=== PATIENT | female | born 1985 | race Caucasian/White ===

== ENCOUNTER → 2016-05-06 | Outpatient (CLI) | payer BC ==
--- NOTE | 2016-05-06 11:15 | US ---
May 06, [address] Alcon Nash, Thank you for requesting consultation and a ultrasound to evaluate routine anatomy fo r your patient, Mrs. Tsang. As you know, Shaniqua is a 30 year old G 2, P 1001 with a marin pr egnancy dating 20 w 6 d; ANETTE of 09/17/16 by LMP and first trimester ultrasound. Aneuploidy screening was not performed. ULTRASOUND Number of fetuses: 1 Placental location: Anterior; no evidence of previa Placental cord insertion: Intraplacental presentation: Variable Cervix: 4.7 cm viewed transabdominally Maximum Vertical Pocket: 4.3 cm The adnexa were evaluated. No pathology was seen. Right ovary is visualized and seen as normal. It measures 3.4 x 2.1 x 3.5 cm. Left ovary is visualized and seen as normal. It measures 3.1 x 2.0 x 1.5 cm. MEASUREMENTS: Biparietal diameter: 53 mm 22 weeks, 2 days Head circumference: 193 mm 21 weeks, 5 days Abdominal circumference: 173 mm 22 weeks, 2 days Femur length: 36 mm 21 weeks, 3 days Humerus length: 35 mm 22 weeks, 1 days Transcerebellar diameter: 22 mm 20 weeks, 6 days Average ultrasound age: 22 weeks, 0 days Estimated weight: 457 gm weight percentile: 92% ANATOMY Supratentorial brain: Normal including views of the falx, cavum septum pellucidum and choroids Lateral Ventricle: Normal, measuring 5.5 mm Posterior fossa: Normal including the cerebellum and cisterna magna Spine: Normal Nuchal fold: 4.9 mm normal Face: Normal views of the lip and nose area Profile: Normal Palate: Normal appearance of the alveolar ridge Heart: Four Chamber View: Normal LVOT: Normal RVOT: Normal 3VV: Seen Trachel View Seen Aortic Arch: Seen Ductal Arch: Seen SVC/IVC: Seen Heart Rate 143 bpm Diaphragm: Normal appearance without overt abnormality detected Stomach: Normal Umbilical cord insertion: Normal Right kidney: Normal Left kidney: Normal Bladder: Normal Number of cord vessels: Three Upper extremities: Normal Lower extremities: Normal Gender: Male IMPRESSION: 1. Intrauterine at 20 w 6 d, ultrasound is consistent with her established ANETTE of 09/17/16 . 2. Normal anatomical survey. 3. Cervical length is normal at 4.7 cm without evidence of insufficiency. RECOMMENDATIONS: I was pleased to review today's ultrasound with your patient and her . The baby is large for gestational age which may be just a growth spurt or macrosomic trend. Should fundal heights in the t hird trimester be concerning for size greater than dates, we are happy to reevaluate the growth. The amniotic fluid volume is normal. Our detailed review of the anatomy did not reveal any overt abnormalities/ Future ultrasound and consultation is left to your clinical discretion. Thank you for allowing us the opportunity to evaluate your patient. Should you have any further ques tions or concerns please do not hesitate to contact me. Low risk; no E&M. Joyce Fine MD [facility] Diagnosis Department of Obstetrics & Gynecology [facility]
--- NOTE | 2016-05-06 11:53 | US ---
OB Sonogram History: 20 weeks 5 days, check growth and anatomy, second trimester screen Comparison: March 11, 2016 Findings: Cervix is closed measuring 4.7 cm transabdominally. The placenta is anterior without previa . The umbilical cord inserts normally into the placenta. Maximum amniotic fluid pocket = 4.3 cm. The maternal ovaries are normal. The visualized intracranial contents, face and spine look normal. The heart i s 4 chambered and has a rate of 143 bpm. The interventricular septum and right and left ventric ular outflow tracks look normal. Fluid is identified in the stomach and urinary bladder. The renal region looks normal. The umbilical cord has 3 vessels and a normal insertion site. 4 extremities are present. BPD = 53 mm = 22 weeks 2 days (91%) Head circumference = 193 mm = 21 weeks 5 days (73%) Abdominal circumference = 173 mm = 22 weeks 2 days (85%) Femur length = 36 mm = 21 weeks 3 days (60%) Humeral length = 35 mm = 22 weeks 1 day Cerebellar width = 22 mm = 20 weeks 6 days Cisterna magna = 4.3 mm Estimated weight = 92 percentile Estimated gestational age by ultrasound = 22 weeks 0 days ANETTE by average ultrasound = September 09, 2016 Impression: LGA fetus (92%) with normal anatomy. Amniotic fluid is normal. This report should be read in conjunction with a consultation by Dr. Joyce Fine.
== END ==
LOC: FIMAGING 09:39
PROVIDERS: ATTEND Obstetrics & Gynecology
DX: Z34.82 Encounter for supervision of other normal pregnancy, second trimester (principal); Z3A.20 20 weeks gestation of pregnancy

== ENCOUNTER 2016-05-17 16:39 | Emergency (ER) | payer BC ==
--- NOTE | 2016-05-17 17:13 | EDPHY ---
H & P Stated Complaint: COUGH,NASAL CONGESTION X 1 WEEK Source: Patient Exam Limitations: No limitations - Personal History LMP (Females 10-55): EDC: 09/17/16 Current Tetanus/Diphtheria Vaccine: Yes Current Tetanus Diphtheria and Acellular Pertussis (TDAP): Yes - Medical/Surgical History Hx Asthma: Yes Hx Chronic Respiratory Disease: No Hx Diabetes: No Hx Cardiac Disease: No Hx Renal Disease: No Hx Cirrhosis: No Hx Alcoholism: No Hx HIV/AIDS: No Hx Splenectomy or Spleen Trauma: No Other PMH: DENIES - Social History Smoking Status: Never smoked Time Seen by Provider: 05/17/16 17:09 HPI/ROS: CHIEF COMPLAINT: nasal congestion, cough, chest pain HISTORY OF PRESENT ILLNESS: 30-year-old female presents to the emergency department complaining of a nasal congestion and cough that started 8 days ago. Patient reports symptoms started as ear pressure and progressed to nasal congestion and cough. Patient reports her cough is worse at night, she denies fevers or chills. Patient reports chest pain that started today while coughing. Chest pain is worse with cough and deep breath, substernal described as pressure. She denies lightheadedness or dizziness, no calf pain, no history of blood clots. Patient has a history of exercise-induced asthma, reports she has not used an inhaler in a few years. Patient also reports a history of heartburn. Patient denies abdominal pain, abdominal cramping, vaginal bleeding. REVIEW OF SYSTEMS: A comprehensive 10 point review of systems is otherwise negative aside from elements mentioned in the history of present illness. (Nga Lea) - Physical Exam Exam: General: Alert, nontoxic. ENT: Tympanic membranes clear, external auditory canal, external ear and surrounding soft tissue including over the mastoid unremarkable. Nasopharynx not injected, there is no rhinorrhea. Oropharynx with erythema, no edema. There is no exudate. No tonsillar hypertrophy. No asymmetry. The uvula is midline. No elevation of tongue. There is no hoarseness. No drooling, patient has good control of their oral secretions. No trismus. No stridor. Cardiac: Regular rate and rhythm. Respiratory: Lungs clear to auscultation bilaterally. Neurological: no meningismus. Skin: No rashes. (Nga Lea) Constitutional: Initial Vital Signs Temperature (C) 36.7 C 05/17/16 16:54 Heart Rate 81 05/17/16 16:54 Respiratory Rate 19 05/17/16 16:54 Blood Pressure 111/72 05/17/16 16:54 O2 Sat (%) 98 05/17/16 16:54 O2 Delivery Mode Room Air Allergies/Adverse Reactions: No Known Allergies Allergy (Unverified 05/17/16 16:54) Home Medications: Medication Instructions Recorded Albuterol Sulfate [Proair 2 puffs IH Q4-6PRN PRN #1 inh 05/17/16 Respiclick] 05/17/16 Medical Decision Making ED Course/Re-evaluation: The patient was evaluated and managed by the physician's assistant track and field coach. My cosignature indicates that I reviewed the chart and I agree with the findings and plan of care as documented. I am the secondary supervising physician. ( Winnie Zheng) 30-year-old nontoxic-appearing female presents with URI symptoms with cough x8 days. Chest pain with coughing. Patient is 20 weeks . Wells criteria is 0, chest pain is likely due to her coughing and URI. Patient is given instructions on symptomatic treatment with Tylenol, rest, fluids. She is given an albuterol inhaler to use as needed for her cough. Lungs are clear to auscultation, oxygen saturations on room air are normal, she is afebrile. She has normal heart tones, no abdominal pain or vaginal bleeding. Patient is discharged home with instructions to return for any worsening or new symptoms. She has been given a primary care doctor to establish care with for symptoms that are not improving in the next few days. (Nga Lea) Differential Diagnosis: Diagnosis considered but not limited to viral syndrome, bronchitis, pneumonia, URI. (Nga Lea) Departure - Departure Disposition: Home, Routine, Self-Care Clinical Impression: URI (upper respiratory infection) Qualifiers: Qualifier Code: (J06.9) Acute upper respiratory infection, unspecified Condition: Good Instructions: Upper Respiratory Infection (ED) Additional Instructions: Take over the counter Tylenol as needed. Rest, drink plenty of fluids. Use a saline nasal rinse, humidifier at night, hot steam showers. Use 2 puffs of albuterol every 4-6 hours as needed for cough. Take [id number] Pepcid. Return to the emergency department for new symptoms or worsening symptoms. Follow up with the primary care doctor listed for re-evaluation next week if you are not improving. Referrals: Carlos Pineda MD [Medical Doctor] - As per Instructions Prescriptions: Albuterol Sulfate [Proair Respiclick] 2 puffs IH Q4-6PRN PRN #1 inh PRN Reason: Cough, Moderate
[2016-05-17 18:17] VITALS: BP 118/76; PULSE 76; RESP 20; TEMP 98.2; O2SAT 97
== END 2016-05-17 18:16 | disposition home or self-care (01) ==
DX: O99.512 Diseases of the respiratory system complicating pregnancy, second trimester (principal); J06.9 Acute upper respiratory infection, unspecified; J45.909 Unspecified asthma, uncomplicated; Z3A.20 20 weeks gestation of pregnancy

== ENCOUNTER 2016-09-10 22:00 | Observation (INO) | payer BC | END 2016-09-10 23:25 | disposition home or self-care (01) | LOC: INTOOBSV 22:00 → OBSVTOIN 22:00 → FLD 22:00 | PROVIDERS: ADMIT Obstetrics & Gynecology; ATTEND Obstetrics & Gynecology | DX: O42.92 Full-term premature rupture of membranes, unspecified as to length of time between rupture and onset of labor (principal); Z3A.39 39 weeks gestation of pregnancy | CPT/HCPCS: 59025; G0378 ==

== ENCOUNTER 2016-09-13 06:51 | Inpatient (IN) | payer BC ==
[2016-09-13] MEDS ORDERED: OXYTOCIN/RINGERS LACTATE 1,000 ML IV PRN (08:46)
[2016-09-13] MEDS ORDERED: AMPICILLIN SODIUM 2 GM in NS 100 ML IV ONE (08:46)
[2016-09-13] MEDS ORDERED: TERBUTALINE SULFATE 1 MG/ML VIAL IV PRN (08:46)
[2016-09-13] MEDS ORDERED: OLIVE OIL 118 ML BTL MISC PRN (08:46)
[2016-09-13] MEDS ORDERED: EPSOM SALT 454 GM TP PRN (08:46)
[2016-09-13] MEDS ORDERED: LR 1,000 ML IV PRN (08:46)
[2016-09-13 09:10] LABS: % IMMATURE GRANULYOCYTES 1.1 % (0.0-1.1); ABSOLUTE IMMATURE GRANULOCYTES 0.11 10^3/uL (0.00-0.10); ADD DIFF? NO; ADD MORPH? NO; ADD SCAN? NO; ATYPICAL LYMPHOCYTE FLAG 0 (0-99); FRAGMENT RBC FLAG 0 (0-99); HEMATOCRIT 39.3 % (38.0-47.0); HEMOGLOBIN 13.4 g/dL (12.6-16.3); LEFT SHIFT FLG 0 (0-99); LIPEMIA HEMOLYSIS FLAG 90 (0-99); MEAN CELL HEMOGLOBIN CONCENTR. 34.1 g/dL (32.4-36.7); MEAN PLATELET VOLUME 10.5 fL (8.7-11.7); PLATELET CLUMPS FLAG 10 (0-99); PLATELET COUNT 233 10^3/uL (150-400); RED BLOOD CELL COUNT 4.32 10^6/uL (4.18-5.33); RED CELL DISTRIBUTION WIDTH 12.2 % (11.5-15.2)
[2016-09-13] MEDS ORDERED: fentaNYL 2MCG/ML/BUP 0.1% RTU 100 ML BAG EP ONE (09:14)
[2016-09-13] MEDS ORDERED: BUPIVACAINE 0.25% 30 ML SDV ONE (09:15)
[2016-09-13] MEDS ORDERED: PHENYLEPHRINE HCL 100 MCG/ML SYR ONE (09:15)
[2016-09-13] MEDS ORDERED: fentaNYL 100 MCG/2 ML INJ ONE (09:16)
[2016-09-13] MEDS ORDERED: OLIVE OIL 118 ML BTL ONE (09:26)
[2016-09-13] MEDS ORDERED: LIDOCAINE 1% 300 MG/30 ML SDV ONE (09:26)
[2016-09-13] MEDS ORDERED: AMMONIA AROMATIC 1 EACH AMP IH ONE (09:26)
[2016-09-13] MEDS ORDERED: TERBUTALINE SULFATE 1 MG/ML VIAL ONE (09:26)
[2016-09-13] MEDS ORDERED: MISOPROSTOL 200 MCG TAB ONE (09:27)
[2016-09-13] MEDS ORDERED: OXYTOCIN 10 UNIT/ML VIAL ONE (09:27)
[2016-09-13] MEDS ORDERED: HYDROCORTISONE 0.5% CREAM TP PRN (09:54)
[2016-09-13] MEDS ORDERED: ACETAMINOPHEN 325 MG TAB PO PRN (09:54)
[2016-09-13] MEDS ORDERED: HYDROCODONE/APAP 5/325 TAB PO PRN (09:54)
[2016-09-13] MEDS ORDERED: SIMETHICONE 80 MG TAB CHEW PO PRN (09:54)
--- NOTE | 2016-09-13 09:58 | OBDEL ---
Info Type: Vaginal GBS+: Yes Antibiotic Used for + GBS: Ampicillin Number of Antibiotic Doses Given: 1 Indications for Delivery: Spontaneous Labor Vaginal Delivery - Labor and Delivery Onset of Contractions Date: 09/13/16 Onset of Contractions Time: 06:00 Onset of Contractions Type: Spontaneous Rupture of Membranes Date: 09/13/16 Rupture of Membranes Time: 09:18 Rupture of Membranes Type: Artificial Amniotic Fluid Color: Clear Dilation Complete Date: 09/13/16 Dilation Complete Time: 09:18 Placenta Delivery Date: 09/13/16 Placenta Delivery Time: 09:37 Total Hours of Labor: 3 Non-surgical Procedures: Amniotomy Laceration: 2nd Degree Repair: 2-0, Vicryl Vaginal Sponge Count Correct: Yes Vaginal Needle Count Correct: Yes Vaginal Sweep Performed: Yes EBL: 200 cc Delivery Events: None Delivery Comment: Pt progressed quickly from 2cm dilated to C/C/+2 and delivered precipitously; Dr Shalonda Umaña attended delivery, as I arrived within 15 minutes of being told the patient had progressed to complete dilation, but she had already delivered. Mother and baby currently in stable and good condition. - Medications Labor Augmentation/Induction Methods Used: None Data [place] Delivery Date: 09/13/16 Delivery Time: 09:33 ANETTE: 09/17/16 Gestational Age: 39 week(s) and 3 day(s) Sex of Infant: Male ("Cedric") Score (1 Min): 8 Score (5 Min): 9 ICD10 Worksheet Patient Problems: Problems Problem Status Onset (spontaneous vaginal delivery) Acute - ICD10 Problem Qualifiers (1) (spontaneous vaginal delivery)
[2016-09-13] MEDS: IBUPROFEN 600 MG TAB PO PRN ×2 (11:36→18:49)
--- NOTE | 2016-09-13 13:18 | GHP ---
[f rep st] HISTORY AND PHYSICAL DATE OF ADMISSION: 09/13/2016 CHIEF COMPLAINT: Painful contractions. HISTORY OF PRESENT ILLNESS: The patient is a 31-year-old 2, para 1 female at 39 weeks and 3 days estimated gestational age with estimated due date of September 17, 2016, who presented to labor and delivery with complaints of contractions every 5 minutes for the last hour. She denied any leakage of fluid or vaginal bleeding and reported good movement. She has been receiving her care at [facility], and her GBS is positive from GBS bacturia. She was initially found to be 2-3 cm dilated, 50% effaced, and -3 station, very high and posterior. The decision was made to admit her and initiate antibiotics for GBS prophylaxis given her contractions were becoming more regular and more painful. The plan was to recheck her cervix in 2 hours, and at that time, the nurse notified me that she desired an epidural. I requested that the nurse recheck her cervix, and when she did check her cervix, the patient was found to be completely dilated, completely effaced, and +2 station. I was notified immediately and came to the hospital urgently. The patient ended up delivering prior to my arrival with Dr. Shalonda Umaña from [facility] in attendance. The patient had no delivery complications and reportedly had a second-degree tear with normal estimated blood loss of approximately 200 cc. She had received 1 dose of antibiotics prior to delivery. PAST MEDICAL HISTORY: Tonsillitis and hernia. PAST SURGICAL HISTORY: Tonsillectomy and hernia repair. OB HISTORY: History of spontaneous vaginal delivery, delivering a male infant at 40 weeks' gestation. ALLERGIES: No known drug allergies. SOCIAL HISTORY: Patient is and denies any tobacco, alcohol, or drug use. LABS: Blood type O positive, antibody screen negative, Pap normal, rubella immune, RPR nonreactive, group B strep positive in her urine culture, hepatitis B surface antigen negative, HIV negative. Gonorrhea and chlamydia negative, 1-hour GTT normal. PHYSICAL EXAMINATION: VITAL SIGNS: Blood pressure 106/57, heart rate 106. HEART RATE TRACINs, reactive and reassuring with accelerations and moderate variability present. TOCOMETER: Contractions every 3-4 minutes. PELVIC: Cervix 2-3 cm dilated, 50% effaced, and -3 station on admission. ASSESSMENT: The patient is a now 31-year-old, 2, para 2 female, status post uncomplicated spontaneous vaginal delivery. PLAN: 1. Continue routine care. 2. Blood type O positive and rubella immune. 3. Group B strep positive, status post 1 dose of antibiotics. Plan for a 48-hour admission since baby will need to be observed by the pediatricians. /[id number]/MODL MTDD
[2016-09-13] MEDS: AMPICILLIN SODIUM 1 GM in NS 100 ML IV SCH ×2 (16:14→19:19)
[2016-09-13 20:46] VITALS: O2SAT 96
[2016-09-13] MEDS: DOCUSATE SODIUM 100 MG CAP PO PRN (21:05)
[2016-09-14] MEDS: IBUPROFEN 600 MG TAB PO PRN ×4 (00:32→19:28)
--- NOTE | 2016-09-14 11:50 | OBPP ---
Progress Note Assessment/Plan: Assessment: 31 y/o female PPD#1 s/p - doing well Plan: 1) Continue routine PP care 2) RH+/RI 3) Continue inpatient care since baby is staying admitted for observation for GBS+ status 09/14/16 11:48 Subjective: Pt is feeling well, no complaints, ambulating, voiding, lochia diminishing, pain well controlled. Objective: 09/13/16 08:00 Patient ABO/Rh O POSITIVE 09/13/16 08:00 Temp Pulse Resp BP Pulse Ox 36.5 C 75 16 100/64 96 09/14/16 08:00 09/14/16 08:00 09/14/16 08:00 09/14/16 08:00 09/13/16 20:30 Uterine Position/Fundal Height: Umbilicus -1 Uterine Tone: Firm
[2016-09-14] MEDS: DOCUSATE SODIUM 100 MG CAP PO PRN ×2 (12:38→19:28)
[2016-09-15] MEDS: IBUPROFEN 600 MG TAB PO PRN (01:10)
--- NOTE | 2016-09-15 07:55 | OBGCSDC ---
General Delivery Information - General Info : 2 Para: 2 Delivery Physician/CNM: Naomy Pandey Admission Date: 09/13/16 Labs: Patient ABO/Rh O POSITIVE 09/13/16 08:00 Hct 39.3 % (38.0-47.0) 09/13/16 08:00 Vaginal - Diagnosis Labor: Spontaneous Rupture of Membranes Type: Artificial Amniotic Fluid Color: Clear Laceration: 2nd Degree Repair: 2-0, Vicryl Delivery Events: None - Operations/Procedures Non-surgical Procedures: Amniotomy L&D Analgesia/Anesthesia Type: None - Delivery Non-surgical Procedures: Amniotomy L&D Analgesia/Anesthesia Type: None [place] Data [facility] Delivery Date: 09/13/16 Delivery Time: 09:33 ANETTE: 09/17/16 Gestational Age: 39 week(s) and 5 day(s) Sex of : Male [place] Weight (gm): 3328 g Score (1 Min): 8 Score (5 Min): 9 Discharge Information - Discharge Information Discharge Medications: Ibuprofen, Oxycodone, Vitamins Condition: Good Instruction/Follow Up: Six Weeks Discharge Physician/CNM: Casandra Young
[2016-09-15] MEDS: DOCUSATE SODIUM 100 MG CAP PO PRN (08:58)
[2016-09-15 09:07] VITALS: BP 116/80; PULSE 83; RESP 17; TEMP 97.8
== END 2016-09-15 11:10 | disposition home or self-care (01) | DRG 775 ==
LOC: FLD 06:51 → OBSVTOIN 06:51 → FOB 13:21
PROVIDERS: ADMIT Obstetrics & Gynecology; ATTEND Obstetrics & Gynecology
PROC: 10E0XZZ Delivery of Products of Conception, External Approach (ICD-10-PCS; principal; 2016-09-13)
PROC: 0KQM0ZZ Repair Perineum Muscle, Open Approach (ICD-10-PCS; principal; 2016-09-13)
DX: O70.1 Second degree perineal laceration during delivery (principal); O99.820 Streptococcus B carrier state complicating pregnancy; Z3A.39 39 weeks gestation of pregnancy; Z37.0 Single live birth
CPT/HCPCS: J0290; J2370; J2590; J3010; J3105